=== PATIENT | female | born 1950 | race Caucasian/White ===

== ENCOUNTER 2023-03-13 08:50 | Emergency (ER) | payer OTHER ==
[~2023-03-13] VITALS: Ht 165.1 cm; Wt 59.9 kg
[2023-03-13] MEDS ORDERED: KETOROLAC 15MG/ML VIAL (15MG/ML) IV STA (10:07)
[2023-03-13 10:49] LABS: BASOPHILS % (AUTO) 0.9 % (0.0-5.0); EOSINOPHILS % (AUTO) 0.8 % (0.0-8.0); HEMATOCRIT 41.1 % (36-48); LYMPHOCYTES % (AUTO) 17.7 % (21.0-51.0); MEAN CORPUSCULAR HGB CONC 32.4 g/dL (32.0-36.0); MONOCYTES % (AUTO) 6.7 % (3.0-13.0); NEUTROPHILS % (AUTO) 73.6 % (40.0-77.0); PLATELET COUNT (AUTO) 227 K/uL (130-400); RED BLOOD CELL COUNT(AUTO) 4.15 MIL/uL (4.00-5.50); RED CELL DISTRIBUTION WIDTH 12.3 % (11.0-15.5); WHITE BLOOD COUNT (AUTO) 10.1 K/uL (4.8-10.8)
[2023-03-13 11:16] LABS: ALBUMIN 4.4 g/dL (3.5-5.0); CREATININE 0.8 mg/dL (0.5-1.5); POTASSIUM 4.6 mmol/L (3.5-5.1)
[2023-03-13 12:21] LABS: APPEARANCE,URINE CLEAR (CLEAR); BILIRUBIN,URINE NEGATIVE (NEGATIVE); COLOR,URINE LIGHT-YELLOW (YELLOW); GLUCOSE, URINE (UA) NEGATIVE (NEGATIVE); KETONES,URINE NEGATIVE (NEGATIVE); LEUKOCYTE ESTERASE ,URINE NEGATIVE Leu/uL (NEGATIVE); NITRATE,URINE NEGATIVE (NEGATIVE); OCCULT BLOOD,URINE NEGATIVE (NEGATIVE); PROTEIN,URINE NEGATIVE (NEGATIVE); UROBILINOGEN,URINE 0.2 mg/dL (0.2-1.0)
[2023-03-13 13:06] VITALS: BP 135/49
== END 2023-03-13 13:17 | disposition home or self-care (01) ==
LOC: EDH 08:50
DX: M25.551 Pain in right hip (principal)
CPT/HCPCS: 99283; 96374; 80053; 85025; 81003; 36415; 73522; J1885

== ENCOUNTER → 2025-08-01 | Outpatient (CLI) | payer OTHER ==
--- NOTE | 2025-08-01 15:28 | HMCSR ---
APPROVED REPORT EXAM: Two-dimensional and M-mode echocardiogram with Doppler and color Doppler. INDICATION ICD: Localized edema R60.0 I70.0 2D Dimensions RVDd2.8 cmLVEF(%)83.0 (>50%)LVED Vol(simp.)54.0 mL IVSd0.9 (0.7-1.1cm)FS(%)51 %LVES Vol(simp.)21.0 mL LVDd3.8 (3.8-5.6cm)LA (2D)3.3 (1.6-4.0cm)LVEF(%, simp.)61 % PWd1.0 (0.7-1.1cm)Ao Root(2D)2.4 (2.0-3.7cm)LA ESV INDEX (BP)23.37 mL/m2 LVDs1.9 (2.5-4.0cm)LVOT diam2.1 (1.8-2.4cm) IVC diam1.2 cm M-Mode Dimensions EPSS1.2 cm LA (MM)3.3 (1.6-4.0cm) Ao Root(MM)2.8 (2.0-3.7cm) Aortic Valve AoV Vmax1.7 m/Nupur Peak GR11.5 mmHgLVOT Vmax1.0 m/s AoV VTI0.3 mAo Mean GR6.0 mmHgLVOT VTI0.19 m SUNNY (VMAX)1.96 cm2AVA (VTI) 2.0 cm2 Mitral Valve MV E Vmax62.0 cm/sDECEL Gaeb567 ms MV A Vmax93.2 cm/sP 1/2 T55 ms E/A ratio0.7MVA (PHT)4.0 cm2 TDI E/E' Ohlcms25.7E/E' Kflghmc89.9 Medial E' Peak V5.29 cm/sLateral E' Peak V5.70 cm/s Pulmonary Valve PV Vmax1.1 m/sPV VTI0.16 mPV Mean GR2.6 mmHg PV Peak GR4.8 mmHg Left Ventricle The left ventricle is normal size. There is normal LV segmental wall motion. There is normal left prieto tricular wall thickness. LVEF is 60-65%. Stage I diastolic dysfunction. Right Ventricle The right ventricle is normal size. The right ventricular systolic function is normal. Atria The left atrium size is normal. The right atrium size is normal. Aortic Valve The aortic valve is normal in structure. No aortic regurgitation is present. There is no aortic valvu lar stenosis. Mitral Valve The mitral valve is normal in structure. Mitral regurgitation is mild. There is no mitral valve steno sis. Tricuspid Valve The tricuspid valve is normal in structure. There is no tricuspid valve regurgitation noted. Pulmonic Valve The pulmonary valve is normal in structure. There is no pulmonic valvular regurgitation. Great Vessels The aortic root is normal in size. The IVC is normal in size and collapses >50% with inspiration. Pericardium There is no pericardial effusion. Conclusion LVEF is 60-65%. Stage I diastolic dysfunction.
--- NOTE | 2025-08-01 15:28 | HMCIMG ---
CHEST 2VWS REASON: ABNORMAL WEIGHT LOSS COMPARISON: None FINDINGS: Two views of the chest were obtained. Lungs are clear there is hyperaeration of lungs with flattening of both hemidiaphragms suggesting of chronic obstructive pulmonary disease.. Heart size is normal. There is no pulmonary vascular congestion. Mediastinum and bony thorax appear unremarkable. The bony thorax demonstrate osteopenia. There are bilateral breast implant in place. IMPRESSION: Chronic obstructive pulmonary disease No evidence of airspace consolidation or pulmonary venous congestion.
== END | disposition home or self-care (01) ==
LOC: RAH 13:47
PROVIDERS: ATTEND Internal Medicine
DX: I34.0 Nonrheumatic mitral (valve) insufficiency (principal); J44.9 Chronic obstructive pulmonary disease, unspecified; R60.0 Localized edema; I70.0 Atherosclerosis of aorta; R63.4 Abnormal weight loss; F17.201 Nicotine dependence, unspecified, in remission
CPT/HCPCS: 71046; 93306